=== PATIENT | male | born 1970 | race Two or more races ===

== ENCOUNTER 2023-03-29 19:37 | Inpatient (IN) | payer MEDICARE, OTHER ==
[~2023-03-29] VITALS: Ht 167.6 cm; Wt 61.2 kg
[2023-03-30] MEDS ORDERED: MAGNESIUM HYDROXIDE 30 ML UDC PO PRN (00:30)
[2023-03-30] MEDS ORDERED: BLOOD SUGAR DIAGNOSTIC 1 EACH STRIP IN ONE (00:30)
[2023-03-30] MEDS ORDERED: ZOLPIDEM TARTRATE 5 MG TABLET PO PRN (00:30)
[2023-03-30] MEDS ORDERED: ACETAMINOPHEN 325 MG TABLET PO PRN (00:30)
[2023-03-30] MEDS ORDERED: MAG HYDROX/AL HYDROX/SIMETH 30 ML UDC PO PRN (00:30)
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
--- NOTE | 2023-03-30 05:02 | NUR ---
RN note: Will endorse to next shift to notify creative services designer .
[2023-03-30 08:00] VITALS: BP 123/77
[2023-03-30] MEDS ORDERED: OLAN5TAB3 PO (08:13)
[2023-03-30 09:00] LABS: ALBUMIN 3.1 g/dL (3.4-5.0); BILIRUBIN,TOTAL 0.5 mg/dL (0.2-1.0); CREATININE 0.7 mg/dL (0.6-1.3); POTASSIUM 3.5 mmol/L (3.5-5.1); TOTAL PROTEIN, SERUM 6.5 g/dL (6.4-8.2)
--- NOTE | 2023-03-30 09:36 | NUR ---
JAYESH Initial Discharge Note: Pt is currently homeless. Pt will need placement. Pt does not have any supportive contact at this time. JAYESH will work with the MD, family, and treatment team to help coordinate appropriate discharge.
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
--- NOTE | 2023-03-30 09:37 | NUR ---
Treatment Plan: Pt was unable to comprehend. Pt refused to sign.
[2023-03-30] MEDS: clonazePAM 0.5 MG TABLET PO PRN (14:00)
--- NOTE | 2023-03-30 14:00 | NUR ---
RN- NOTES KLONOPIN ADMINISTERED DUE TO PATIENT INCREASED ANXIETY, AGITATION, AND GOING INTO OTHER PATIENTS ROOMS/BEDS.
--- NOTE | 2023-03-30 14:52 | NUR ---
RN- NOTES PATIENT AGGRESSIVE, YELLING PROFANITIES, THROWING HIMSELF ONTO THE FLOOR AND ATTEMPTING TO HIT HEAD ON FLOOR. PATIENT IS NON REDIRECTABLE.
[2023-03-30 16:00] VITALS: BP 109/55
[2023-03-30] MEDS: OLANZAPINE 5 MG TABLET PO SCH (16:30)
--- NOTE | 2023-03-30 18:37 | NUR ---
RN- CLOSING NOTES PATIENT AWAKE, RESTING IN BED, BREATHING EVEN AND NON LABORED WITH NO S/S OF DISTRESS. PATIENT IS COOPERATIVE/UNCOOPERATIVE AT TIMES, CONFUSED, DISORIENTED, GUARDED, ANXIOUS, WALKING INTO OTHER PATIENT ROOMS AND ATTEMPTING TO LAY DOWN IN OTHER PATIENTS BEDS. PATIENT REQUIRES FREQUENT REDIRECTION. PATIENT IS MEDICATION COMPLIANT. DENIES SI/HI BUT IS CONFUSED AT THIS TIME. WILL CONTINUE TO MONITOR Q 15 MINUTES FOR SAFETY AND BEHAVIOR.
[2023-03-30 20:23] VITALS: BP 124/77
[2023-03-30] MEDS: DIVALPROEX SODIUM 250 MG TABLET.DR PO SCH (22:12)
[2023-03-31 08:00] VITALS: BP 104/58
[2023-03-31 08:23] LABS: CHOLESTEROL 130 mg/dL (<200); HDL CHOLESTEROL 57 mg/dL (40-60); LDL 66 mg/dL (0-99); TRIGLYCERIDES 58 mg/dL (30-150)
[2023-03-31] MEDS: DIVALPROEX SODIUM 250 MG TABLET.DR PO SCH ×2 (08:55→20:20)
[2023-03-31] MEDS: OLANZAPINE 5 MG TABLET PO SCH ×2 (08:55→17:09)
--- NOTE | 2023-03-31 08:55 | NUR ---
RN-NOTES PATIENT SPIT ALL 0900 AM MEDICATIONS ( DEPAKOTE 250MG AND ZYPREXA 5MG P.O) STATED" I DON'T TAKE MEDICATION ) OFFERED X3
--- NOTE | 2023-03-31 09:35 | NUR ---
RN-NOTES NOTED PATIENT PACING IN THE HALLWAY,AGITATED AND INTRUSIVE. DR. PAREDES IN THE UNIT AND ORDERED ZYPREXA 10MG IM ONCE.
[2023-03-31] MEDS ORDERED: OLANZAPINE 10 MG VIAL IM ONE (10:00)
[2023-03-31] MEDS: clonazePAM 0.5 MG TABLET PO PRN (12:58)
--- NOTE | 2023-03-31 13:04 | NUR ---
RN-NOTES NOTED PATIENT PACING IN AND OUT THE ROOM TO DINING ROOM ,DISROBING AND THROWING FOOD ON THE FLOOR,REDIRECTED AND KLONOPIN 0.5MG P.O GIVEN PRN ORDER. WILL CONT. MONITORING FOR SAFETY AND BEHAVIOR.
--- NOTE | 2023-03-31 14:00 | NUR ---
RN-NOTES PATIENT LYING IN BED INTERMITTENTLY SLEEPING, NO ACUTE DISTRESS NOTED.
[2023-03-31 18:56] VITALS: BP 102/62
--- NOTE | 2023-03-31 19:50 | NUR ---
LINK TRAINER MAINTENANCE WORKER NOTES: RECEIVED PATIENT IN HIS ROOM. LAYING IN BED. APPEARS SLEEPING, EASY TO AROUSE. A/O X1-2. ON ROOM AIR. NO ACUTE DISTRESS NOTED. NO C/O PAIN AT THIS TIME. SAFETY MEASURES IN PLACE. WILL CONTINUE TO MONITOR FOR SAFETY AND BEHAVIOR.
[2023-03-31 20:00] VITALS: BP 110/67
--- NOTE | 2023-04-01 01:22 | NUR ---
GPS PIPELINE EXECUTIVE NOTE PT NOTED SLEEPING IN HIS BED, EASY TO AROUSE. BREATHING EVEN AND UNLABORED, NO S/SX OF ACUTE DISTRESS. WILL CONT TO MONITOR BEHAVIOR AND SAFETY.
--- NOTE | 2023-04-01 06:05 | NUR ---
GPS HAZARDOUS MATERIAL TECHNICIAN CLOSING NOTES PATIENT AWAKE, RESTING IN BED, BREATHING EVEN AND NON LABORED WITH NO S/S OF DISTRESS. PATIENT IS COOPERATIVE/UNCOOPERATIVE AT TIMES, CONFUSED, DISORIENTED, GUARDED, ANXIOUS. PATIENT REQUIRES FREQUENT REDIRECTION. PATIENT IS MEDICATION COMPLIANT. DENIES SI/HI BUT IS CONFUSED AT THIS TIME. WILL CONTINUE TO MONITOR Q 15 MINUTES FOR SAFETY AND BEHAVIOR. WILL ENDORSE CONTINUITY OF CARE TO INCOMING NURSE.
[2023-04-01 08:00] VITALS: BP 135/93
[2023-04-01] MEDS: DIVALPROEX SODIUM 250 MG TABLET.DR PO SCH ×2 (08:24→22:04)
[2023-04-01] MEDS: OLANZAPINE 5 MG TABLET PO SCH ×2 (08:24→16:16)
[2023-04-01 16:00] VITALS: BP 140/76
--- NOTE | 2023-04-01 18:18 | NUR ---
RN-NOTES PATIENT STAY IN THE ROOM MOST OF THE TIME ,GUARDED A/O X1 .COMPLIANT WITH MEDICATIONS. NOTED PATIENT WITH EPISODE OF DISROBING MUMBLING TO SELF BEHAVIOR.,NEEDS REDIRECTION ANS INSTRUCTIONS. ALL NEEDS ATTENDED AND ANTICIPATED. WILL CONT. MONITORING FOR SAFETY AND BEHAVIOR. WILL ENDORSE TO INCOMING SHIFT /NURSE FOR THE CONTINUITY OF CARE.
--- NOTE | 2023-04-01 20:15 | NUR ---
SPECIAL EDUCATION RESOURCE TEACHER NOTES: RECEIVED PATIENT IN HIS ROOM LYING ON BED, APPEARS SLEEPING BUT EASY TO AROUSE, NO ACUTE DISTRESS NOTED, SAFETY MEASURES MAINTAINS, WILL CONTINUE TO MONITOR FOR SAFETY AND BEHAVIOR.
--- NOTE | 2023-04-02 06:45 | NUR ---
Patient remains asleep, appears calm and comfortable. No labored breathing noted at this time. Safety measures in place. Will endorse to oncoming shift.
[2023-04-02 08:00] VITALS: BP 124/78
[2023-04-02] MEDS: DIVALPROEX SODIUM 250 MG TABLET.DR PO SCH ×2 (08:32→21:21)
[2023-04-02] MEDS: OLANZAPINE 5 MG TABLET PO SCH ×2 (08:32→16:30)
[2023-04-02 16:00] VITALS: BP 126/79
--- NOTE | 2023-04-02 19:53 | NUR ---
FLOWER PICKER NOTES: RECEIVED PATIENT IN HIS ROOM LYING ON BED, APPEARS SLEEPING BUT EASY TO AROUSE, NO ACUTE DISTRESS NOTED,BREATHING NON-LABORED WITH EQUAL RISE AND FALL OF THE CHEST.NO C/O PAIN OR DISCOMFORT AT THIS TIME.SAFETY MEASURES MAINTAINS, WILL CONTINUE TO MONITOR FOR SAFETY AND BEHAVIOR.
[2023-04-02 20:00] VITALS: BP 138/71
[2023-04-03 08:00] VITALS: BP 107/63
[2023-04-03] MEDS: OLANZAPINE 5 MG TABLET PO SCH ×2 (08:23→16:34)
[2023-04-03] MEDS: DIVALPROEX SODIUM 250 MG TABLET.DR PO SCH ×2 (08:23→20:58)
[2023-04-03] MEDS ORDERED: OLANZAPINE 2.5 MG TABLET PO SCH (14:30)
[2023-04-03 15:07] LABS: BASOPHILS % (AUTO) 0.8 % (0.0-2.0); EOSINOPHILS % (AUTO) 3.2 % (0.0-6.0); HEMATOCRIT 37 % (39-51); LYMPHOCYTES # (AUTO) 1.5 K/uL (0.8-4.8); MEAN CORPUSCULAR HGB CONC 32 g/dl (31.0-36.0); MEAN CORPUSCULAR VOLUME 89 fL (80-96); MONOCYTES # (AUTO) 0.5 K/uL (0.1-1.30); MONOCYTES % (AUTO) 9.3 % (2.0-12.0); NEUTROPHILS # (AUTO) 3.2 K/uL (1.8-8.9); NEUTROPHILS % (AUTO) 58.7 % (43.0-81.0); PLATELET COUNT (AUTO) 277 K/uL (150-450); RED BLOOD CELL COUNT(AUTO) 4.15 MIL/uL (4.5-6.0); WHITE BLOOD COUNT (AUTO) 5.4 K/uL (4.3-11.0)
[2023-04-03 16:00] VITALS: BP 100/60
--- NOTE | 2023-04-03 16:11 | NUR ---
RN-CO: CLARIFIED W/ CHEYENNE BEAM SAW OPERATOR , HE REPLIED ZYPREXA 2.5 MG QD IS IN ADDITION. NOTIFIED PHARMACY.
[2023-04-03] MEDS: OLANZAPINE 2.5 MG TABLET PO SCH (16:35)
[2023-04-03 20:41] VITALS: BP 115/65
[2023-04-04 08:00] VITALS: BP 104/64
[2023-04-04] MEDS: DIVALPROEX SODIUM 250 MG TABLET.DR PO SCH ×2 (08:12→21:09)
[2023-04-04] MEDS: OLANZAPINE 2.5 MG TABLET PO SCH ×2 (08:13→16:25)
[2023-04-04] MEDS: OLANZAPINE 5 MG TABLET PO SCH ×2 (08:13→16:24)
--- NOTE | 2023-04-04 09:11 | NUR ---
RN-CO: PATIENT IS AWAKE, ATE HIS MEAL AND TOOK ALL HIS MORNNG MEDICATIONS. HE DENIED PAIN AND DISCOMFORTS.HE IS SOMEWHAT BETTER COMPARE TO LAST WEEK, HE IS MORE COOPERATIVE AND REDIRECTABLE. WE WILL ENCOURAGE HIM TO ATTEND GROUP AND SHOWER TODAY. WE WILL CONTINUE TO MONITOR FOR SAFETY.
[2023-04-04 16:00] VITALS: BP 109/63
[2023-04-04 20:00] VITALS: BP 99/62
[2023-04-04 21:16] VITALS: BP 99/62
[2023-04-05 08:00] VITALS: BP 117/72
[2023-04-05] MEDS: OLANZAPINE 2.5 MG TABLET PO SCH ×2 (08:35→17:05)
[2023-04-05] MEDS: OLANZAPINE 5 MG TABLET PO SCH ×2 (08:35→17:05)
[2023-04-05] MEDS: DIVALPROEX SODIUM 250 MG TABLET.DR PO SCH ×2 (08:35→21:26)
--- NOTE | 2023-04-05 11:35 | NUR ---
Referral: JAYESH sent clinicals to [facility] to zachary Medrano ([phone]) for placement. JAYESH sent H & P, progress notes, and medication list.
--- NOTE | 2023-04-05 11:37 | NUR ---
SNF Contact: SW spoke with [facility] to zachary Medrano ([phone]) who stated that pt is accepted.
[2023-04-05 16:00] VITALS: BP 101/52
--- NOTE | 2023-04-05 18:50 | NUR ---
RN- CLOSING NOTES PATIENT ASLEEP IN BED, BREATHING EVEN AND NON LABORED WITH NO S/S OF DISTRESS. PATIENT IS COOPERATIVE, CONFUSED, DISORIENTED, GUARDED, ANXIOUS, AND ISOLATIVE. ENCOURAGED PATIENT TO LEAVE ROOM AND SOCIALIZE WITH STAFF, PATIENT REFUSED. PATIENT REQUIRES FREQUENT REDIRECTION. PATIENT IS MEDICATION COMPLIANT. DENIES SI/HI BUT IS CONFUSED AT THIS TIME. WILL CONTINUE TO MONITOR Q 15 MINUTES FOR SAFETY AND BEHAVIOR.
[2023-04-05 20:35] VITALS: BP 100/61
[2023-04-06 08:00] VITALS: BP 106/67
[2023-04-06] MEDS: OLANZAPINE 2.5 MG TABLET PO SCH ×2 (08:32→17:31)
[2023-04-06] MEDS: DIVALPROEX SODIUM 250 MG TABLET.DR PO SCH ×2 (08:32→21:06)
[2023-04-06] MEDS: OLANZAPINE 5 MG TABLET PO SCH ×2 (08:32→17:32)
--- NOTE | 2023-04-06 09:58 | NUR ---
RN-CO: PT IS CALM AND COOPERATIVE, HE IS BETTER THAN LAST WEEK. DENIED AH AND TAYLOR.
--- NOTE | 2023-04-06 11:24 | NUR ---
Court Notification: SW does not have any supportive contact.
--- NOTE | 2023-04-06 11:25 | NUR ---
Court Hearing: Patient's court hearing for 5290 was today and it was upheld for GD.
[2023-04-06 16:00] VITALS: BP 102/65
[2023-04-06 20:15] VITALS: BP 111/63
[2023-04-07 08:00] VITALS: BP 110/68
[2023-04-07] MEDS: OLANZAPINE 5 MG TABLET PO SCH ×2 (08:09→16:45)
[2023-04-07] MEDS: DIVALPROEX SODIUM 250 MG TABLET.DR PO SCH ×2 (08:10→21:42)
[2023-04-07] MEDS: OLANZAPINE 2.5 MG TABLET PO SCH ×2 (08:10→16:45)
--- NOTE | 2023-04-07 09:45 | NUR ---
RN Notes: Received pt. asleep in bed, breathing is even and unlabored. Ate 100% for breakfast and compliant on meds. Pt. isolates in his room and no social interactions. Encouraged to verbalize feeling s and motivated to attend group activity and encouraged to take shower. Needs attended and will continue to monitor for safety.
[2023-04-07 16:00] VITALS: BP 104/60
--- NOTE | 2023-04-07 20:24 | NUR ---
RN NOTE:- RECEIVED PATIENT IN HIS ROOM LYING ON BED, APPEARS SLEEPING BUT EASY TO AROUSE, NO ACUTE DISTRESS NOTED,BREATHING NON-LABORED WITH EQUAL RISE AND FALL OF THE CHEST.NO C/O PAIN OR DISCOMFORT AT THIS TIME.SAFETY MEASURES MAINTAINS, WILL CONTINUE TO MONITOR FOR SAFETY AND BEHAVIOR.
--- NOTE | 2023-04-08 06:40 | NUR ---
RN CLOSING NOTES:- PATIENT ASLEEP IN BED, BREATHING EVEN AND NON LABORED WITH NO S/S OF DISTRESS. PATIENT IS COOPERATIVE, CONFUSED, DISORIENTED, GUARDED, ANXIOUS, AND ISOLATIVE. ENCOURAGED PATIENT TO LEAVE ROOM AND SOCIALIZE WITH STAFF, PATIENT REFUSED. PATIENT REQUIRES FREQUENT REDIRECTION. PATIENT IS MEDICATION COMPLIANT. DENIES SI/HI BUT IS CONFUSED AT THIS TIME. WILL CONTINUE TO MONITOR Q 15 MINUTES FOR SAFETY AND BEHAVIOR.
[2023-04-08 08:00] VITALS: BP 100/53
[2023-04-08] MEDS: OLANZAPINE 5 MG TABLET PO SCH ×2 (08:06→16:15)
[2023-04-08] MEDS: OLANZAPINE 2.5 MG TABLET PO SCH ×2 (08:06→16:15)
[2023-04-08] MEDS: DIVALPROEX SODIUM 250 MG TABLET.DR PO SCH ×2 (08:06→21:27)
[2023-04-08 16:02] VITALS: BP 108/61
--- NOTE | 2023-04-08 19:27 | NUR ---
GPS RN NOTE, RECEIVED PATIENT AWAKE AND IN BED, NO S/S OR COMPLAINTS OF PAIN AT THIS TIME. PATIENT IS DISPLAYING NO S/S OF APPARENT DISTRESS AT THIS TIME. PATIENT BREATHING IS UNLABORED WITH EQUAL RISE AND FALL OF THE CHEST. PATIENT IS ALERT AND ORIENTED X 1 ON ROOM AIR WITH A SPO2 97%. PATIENT IS COMPLAINT WITH MEDICATIONS, ISOLATIVE, CONFUSED AT TIMES, MAKES NEEDS KNOWN, AND COOPERATIVE. PATIENT DENIES SUICIDAL AND HOMICIDAL IDEATIONS AT THIS TIME. PATIENT ASSISTED WITH TURNING AND REPOSITIONING Q2HR AND PRN FOR COMFORT AND CIRCULATION. PATIENT HAS NO NEEDS AT THIS TIME. PATIENT EDUCATED ON THE USE OF THE CALL CHANG. PATIENT BED SIDE RAILS UP X 2 FOR SAFETY. PATIENT BED IS LOCKED, LOW, WITH BED ALARM ON. WILL CONTINUE TO MONITOR THIS PATIENT Q15 MINUTES WITH THE HELP OF STAFF TO MAINTAIN SAFETY.
[2023-04-09 08:00] VITALS: BP 101/69
[2023-04-09] MEDS: OLANZAPINE 5 MG TABLET PO SCH ×2 (08:10→16:06)
[2023-04-09] MEDS: DIVALPROEX SODIUM 250 MG TABLET.DR PO SCH ×2 (08:10→21:20)
[2023-04-09] MEDS: OLANZAPINE 2.5 MG TABLET PO SCH (08:10)
[2023-04-09 16:00] VITALS: BP 100/58
--- NOTE | 2023-04-09 19:30 | NUR ---
GPS RN NOTE, RECEIVED PATIENT AWAKE AND IN BED, NO S/S OR COMPLAINTS OF PAIN AT THIS TIME. PATIENT IS DISPLAYING NO S/S OF APPARENT DISTRESS AT THIS TIME. PATIENT BREATHING IS UNLABORED WITH EQUAL RISE AND FALL OF THE CHEST. PATIENT IS ALERT AND ORIENTED X 1-2 ON ROOM AIR WITH A SPO2 97%. PATIENT IS COMPLAINT WITH MEDICATIONS, ISOLATIVE, CONFUSED AT TIMES, MAKES NEEDS KNOWN, AND COOPERATIVE. PATIENT DENIES SUICIDAL AND HOMICIDAL IDEATIONS AT THIS TIME. PATIENT ASSISTED WITH TURNING AND REPOSITIONING Q2HR AND PRN FOR COMFORT AND CIRCULATION. PATIENT HAS NO NEEDS AT THIS TIME. PATIENT EDUCATED ON THE USE OF THE CALL CHANG. PATIENT BED SIDE RAILS UP X 2 FOR SAFETY. PATIENT BED IS LOCKED, LOW, WITH BED ALARM ON. WILL CONTINUE TO MONITOR THIS PATIENT Q15 MINUTES WITH THE HELP OF STAFF TO MAINTAIN SAFETY.
[2023-04-09 20:49] VITALS: BP 155/57
[2023-04-10 08:00] VITALS: BP 107/55
[2023-04-10] MEDS: OLANZAPINE 5 MG TABLET PO SCH ×2 (08:08→17:41)
[2023-04-10] MEDS: DIVALPROEX SODIUM 250 MG TABLET.DR PO SCH ×2 (08:09→21:08)
[2023-04-10 16:00] VITALS: BP 110/58
[2023-04-10 20:14] VITALS: BP 112/70
[2023-04-11 08:00] VITALS: BP 112/65
[2023-04-11] MEDS: OLANZAPINE 5 MG TABLET PO SCH ×2 (08:52→17:27)
[2023-04-11] MEDS: DIVALPROEX SODIUM 250 MG TABLET.DR PO SCH ×2 (08:52→20:25)
[2023-04-11 16:00] VITALS: BP 103/65
[2023-04-11 20:00] VITALS: BP 107/69
[2023-04-12 08:00] VITALS: BP 100/59
--- NOTE | 2023-04-12 09:17 | NUR ---
SW Discharge Note: Patient will be discharged to long-term facility, [facility], located at [address] [place] [address] ([phone]). Please arrange ambulance transportation at 1PM. company laundry worker spoke with Marcela sharma ([phone]), who stated patient will be accepted at the facility today. Patient does not have any supportive contact. Patient is alert and oriented x3 and is unable to plan for self-care. Patient denies any suicidal or homicidal ideation. Patient has no supportive contact. Patient will follow-up at the facility with Dr. Mota (psychiatrist) [id number] [address]; ([phone]) and (Mica Paster) Dr. Hogue [address], [place] [address]; ([phone]). Patient refused to sign the homeless waiver upon discharge and a copy was placed in the chart. Homeless resources were provided and include [address] information line for shelters and homeless resources. A copy of all resources given to patient was also placed in the chart. Patient presents with euthymic mood and congruent affect.
[2023-04-12] MEDS: DIVALPROEX SODIUM 250 MG TABLET.DR PO SCH (09:19)
[2023-04-12] MEDS: OLANZAPINE 5 MG TABLET PO SCH (09:19)
--- NOTE | 2023-04-12 14:40 | NUR ---
RN- DISCHARGE NOTES PATIENT DISCHARGED TO [facility] IN STABLE CONDITION. COMPLIANT WITH MEDICATIONS AND COOPERATIVE WITH TREATMENT PLANS. PATIENT DENIES SUICIDAL/HOMICIDAL IDEATION AND AUDITORY/VISUAL HALLUCINATION. BEHAVIOR IMPROVED, PSYCHIATRIC TREATMENT PLANS MET, MEDICAL TREATMENT PLANS DEFERRED FOR CONTINUAL MONITORING. EDUCATED PATIENT ABOUT AFTER CARE PLAN AND COPY PROVIDED. RETURNED ALL PERSONAL BELONGINGS TO PATIENT. PATIENT IS WITHOUT DISTRESS, CALM, AND COOPERATIVE. MEDICATIONS RECONCILED WITH PSYCHIATRIST DR. PAREDES AND CLOTH EDGE SINGER DR. LUONG. PSYCHIATRIST ORDER TO DISCONTINUE HOLD AND DISCHARGE TO [facility], AND ORDER TO CONTINUE WITH ALL MEDICATIONS AND PRN'S COMPLETED. REPORT GIVEN TO AMRIT HOLLINGSWORTH AT [facility] FOR CONTINUITY OF CARE. PATIENT SIGNED ALL DISCHARGE PAPERWORK EXCEPT FOR THE HOMELESS ACKNOWLEDGEMENT PAPERWORK, COPY PROVIDED AND PLACED IN CHART. SKIN INTACT, NO PHOTO REQUIRED. PATIENT LEFT THE UNIT AT 1440 VIA AMBULANCE ON A GURNEY.
== END 2023-04-12 14:40 | DRG 885 ==
LOC: GPS 23:43
PROVIDERS: ADMIT Psychiatry & Neurology Psychiatry; ATTEND Internal Medicine
DX: F29 Unspecified psychosis not due to a substance or known physiological condition (principal); F20.0 Paranoid schizophrenia; Z59.02 Unsheltered homelessness; M62.81 Muscle weakness (generalized); R41.89 Other symptoms and signs involving cognitive functions and awareness; F32.A Depression, unspecified; F41.9 Anxiety disorder, unspecified; Z91.81 History of falling; R27.9 Unspecified lack of coordination
CPT/HCPCS: 36415; 80053-TC; 80061-TC; 80164-TC; 85025-TC; J3490

== ENCOUNTER 2023-08-11 00:38 | Inpatient (IN) | payer MEDICARE, OTHER ==
[~2023-08-11] VITALS: Ht 165.1 cm; Wt 73.5 kg
[~2023-08-11 00:38] MED LIST: ACET-868 PO; CLON0.5T4 PO; DIVA500T2 PO; MAG30ORA PO; MAGN400O6 PO; OLAN5TAB3 PO; ZOLP5TAB8 PO
[2023-08-11 01:13] LABS: APPEARANCE,URINE CLEAR (CLEAR); BILIRUBIN,URINE NEGATIVE (NEGATIVE); BLOOD, URINE NEGATIVE Ery/uL (NEGATIVE); COLOR,URINE YELLOW (YELLOW); KETONES,URINE NEGATIVE (NEGATIVE); LEUKOCYTE ESTERASE ,URINE NEGATIVE (NEGATIVE); NITRITE, URINE NEGATIVE (NEGATIVE); PROTEIN,URINE NEGATIVE (NEGATIVE); UGLUCOSE NEGATIVE (NEGATIVE); UROBILINOGEN,URINE 0.2 EU/dL (0.2)
[2023-08-11 01:16] LABS: BASOPHILS % (AUTO) 0.5 % (0.0-2.0); EOSINOPHILS # (AUTO) 0.1 K/uL (0.0-0.7); EOSINOPHILS % (AUTO) 1.3 % (0.0-6.0); HEMATOCRIT 34 % (39-51); HEMOGLOBIN 11.7 g/dL (13.5-17.5); LYMPHOCYTES # (AUTO) 1.5 K/uL (0.8-4.8); LYMPHOCYTES % (AUTO) 19.1 % (20.0-44.0); MEAN CORPUSCULAR HEMOGLOBIN 31 PG (26.0-33.0); MEAN CORPUSCULAR HGB CONC 34 g/dl (31.0-36.0); MEAN CORPUSCULAR VOLUME 89 fL (80-96); NEUTROPHILS # (AUTO) 5.1 K/uL (1.8-8.9); NEUTROPHILS % (AUTO) 66.1 % (43.0-81.0); PLATELET COUNT (AUTO) 260 K/uL (150-450); RED BLOOD CELL COUNT(AUTO) 3.82 MIL/uL (4.5-6.0); RED CELL DISTRIBUTION WIDTH 14.6 % (11.5-15.0); WHITE BLOOD COUNT (AUTO) 7.7 K/uL (4.3-11.0)
[2023-08-11 01:22] LABS: AMPHETAMINE, URINE NEGATIVE (NEGATIVE); BARBITURATE, URINE NEGATIVE (NEGATIVE); BENZODIAZEPINE, URINE NEGATIVE (NEGATIVE); CANNABINOID, URINE NEGATIVE (NEGATIVE); COCCAINE, URINE NEGATIVE (NEGATIVE); OPIATE, URINE NEGATIVE (NEGATIVE); PHENCYCLIDINE SCREEN,URINE NEGATIVE (NEGATIVE)
[2023-08-11 01:24] LABS: CALCIUM, SERUM 9.2 mg/dL (8.5-10.1); CARBON DIOXIDE 26 mmol/L (21-32); CHLORIDE 103 mmol/L (98-107); CREATININE 1.2 mg/dL (0.6-1.3); GLUCOSE 112 mg/dL (74-106); POTASSIUM 3.9 mmol/L (3.5-5.1); SODIUM SERUM 137 mmol/L (136-145); UREA NITROGEN, BLOOD 12 mg/dL (7-18)
[2023-08-11 01:30] LABS: ALANINE AMINOTRANSFERASE 26 U/L (12-78); ALBUMIN 3.4 g/dL (3.4-5.0); ALKALINE PHOSPHATASE 126 U/L (46-116); ASPARTATE AMINOTRANSFERASE 22 U/L (15-37); BILIRUBIN,DIRECT 0.1 mg/dL (0.0-0.2); BILIRUBIN,TOTAL 0.2 mg/dL (0.2-1.0); SALICYLATE 2.9 mg/dL (2.8-20.0); TOTAL PROTEIN, SERUM 7.2 g/dL (6.4-8.2)
[2023-08-11 01:31] LABS: ACETAMINOPHEN <10 ug/ml (10-30); ALCOHOL, BLOOD < 3 mg/dL (0-10)
[2023-08-11] MEDS ORDERED: LORA-259 PO (02:54)
[2023-08-11 05:45] VITALS: BP 107/71; TEMP 98.2; O2SAT 98
[2023-08-11] MEDS ORDERED: MAGNESIUM HYDROXIDE 30 ML UDC PO PRN ×2 (06:00→11:30)
[2023-08-11] MEDS ORDERED: LORAZEPAM 1 MG TABLET PO PRN (06:00)
[2023-08-11] MEDS ORDERED: ACETAMINOPHEN 325 MG TABLET PO PRN ×2 (06:00→11:30)
[2023-08-11] MEDS ORDERED: BLOOD SUGAR DIAGNOSTIC 1 EACH STRIP IN ONE (06:00)
[2023-08-11] MEDS ORDERED: MAG HYDROX/AL HYDROX/SIMETH 30 ML UDC PO PRN (06:00)
[2023-08-11] MEDS ORDERED: ZOLPIDEM TARTRATE 5 MG TABLET PO PRN ×2 (06:00→11:30)
[2023-08-11 08:00] VITALS: BP 107/72; TEMP 97.9; O2SAT 96
[2023-08-11] MEDS: OLANZAPINE 5 MG TABLET PO SCH ×2 (09:53→16:58)
[2023-08-11] MEDS: DIVALPROEX SODIUM 250 MG TABLET.DR PO SCH ×3 (09:53→16:58)
[2023-08-11 16:00] VITALS: BP 106/65; TEMP 98.6; O2SAT 100
[2023-08-11 20:00] VITALS: BP 125/81; TEMP 98.2; O2SAT 96
[2023-08-12 07:14] LABS: ALBUMIN 3.3 g/dL (3.4-5.0); BILIRUBIN,TOTAL 0.3 mg/dL (0.2-1.0); CALCIUM, SERUM 9.2 mg/dL (8.5-10.1); CREATININE 0.8 mg/dL (0.6-1.3); POTASSIUM 3.8 mmol/L (3.5-5.1); TOTAL PROTEIN, SERUM 7.3 g/dL (6.4-8.2)
[2023-08-12 07:17] LABS: THYROID STIMULATING HORMONE 2.862 uIU/mL (0.358-3.74)
[2023-08-12 08:00] VITALS: BP 110/79; TEMP 97.7; O2SAT 97
[2023-08-12] MEDS: OLANZAPINE 5 MG TABLET PO SCH ×2 (08:29→16:42)
[2023-08-12] MEDS: DIVALPROEX SODIUM 250 MG TABLET.DR PO SCH ×3 (08:29→16:42)
[2023-08-12] MEDS: NICOTINE PATCH (21MG) 21 MG PATCH.TD24 TD SCH (08:29)
[2023-08-12 16:00] VITALS: BP 115/82; TEMP 98; O2SAT 97
[2023-08-12 20:00] VITALS: BP 118/71; TEMP 97.5; O2SAT 96
[2023-08-13 08:00] VITALS: BP 105/71; TEMP 97.7; O2SAT 95
[2023-08-13] MEDS: DIVALPROEX SODIUM 250 MG TABLET.DR PO SCH ×3 (08:14→17:59)
[2023-08-13] MEDS: OLANZAPINE 5 MG TABLET PO SCH ×2 (08:15→18:00)
[2023-08-13] MEDS: NICOTINE PATCH (21MG) 21 MG PATCH.TD24 TD SCH (08:15)
[2023-08-13 16:00] VITALS: BP 109/66; TEMP 97.6; O2SAT 94
[2023-08-13 20:07] VITALS: BP 128/93; TEMP 97.6; O2SAT 96
[2023-08-14 08:00] VITALS: BP 106/72; TEMP 98.4; O2SAT 97
[2023-08-14] MEDS: DIVALPROEX SODIUM 250 MG TABLET.DR PO SCH ×3 (08:36→17:59)
[2023-08-14] MEDS: OLANZAPINE 5 MG TABLET PO SCH ×2 (08:36→17:59)
[2023-08-14] MEDS: NICOTINE PATCH (21MG) 21 MG PATCH.TD24 TD SCH (08:36)
[2023-08-14 16:00] VITALS: BP 108/79; TEMP 98.2; O2SAT 97
[2023-08-14 21:02] VITALS: BP 113/83; TEMP 97.9; O2SAT 97
[2023-08-15 08:00] VITALS: BP 100/63; TEMP 97.5; O2SAT 98
[2023-08-15] MEDS: DIVALPROEX SODIUM 250 MG TABLET.DR PO SCH ×3 (08:29→16:35)
[2023-08-15] MEDS: OLANZAPINE 5 MG TABLET PO SCH ×2 (08:29→16:35)
[2023-08-15] MEDS: NICOTINE PATCH (21MG) 21 MG PATCH.TD24 TD SCH (08:29)
[2023-08-15 16:00] VITALS: BP 110/63; TEMP 98.2; O2SAT 95
[2023-08-15 19:48] VITALS: BP 117/76; TEMP 98.1; O2SAT 96
[2023-08-16 08:00] VITALS: BP 105/62; TEMP 98.1; O2SAT 100
[2023-08-16] MEDS: NICOTINE PATCH (21MG) 21 MG PATCH.TD24 TD SCH (08:41)
[2023-08-16] MEDS: OLANZAPINE 5 MG TABLET PO SCH ×2 (08:41→16:17)
[2023-08-16] MEDS: DIVALPROEX SODIUM 250 MG TABLET.DR PO SCH ×2 (08:41→16:16)
[2023-08-16 15:57] VITALS: BP 123/85; TEMP 97.9; O2SAT 100
[2023-08-16 16:00] VITALS: BP 123/85; TEMP 97.9; O2SAT 97
[2023-08-16 20:52] VITALS: BP 120/78; TEMP 98.1; O2SAT 95
[2023-08-17 08:00] VITALS: BP 103/62; TEMP 98.7; O2SAT 100
[2023-08-17] MEDS: DIVALPROEX SODIUM 250 MG TABLET.DR PO SCH ×2 (08:20→16:21)
[2023-08-17] MEDS: NICOTINE PATCH (21MG) 21 MG PATCH.TD24 TD SCH (08:20)
[2023-08-17] MEDS: OLANZAPINE 5 MG TABLET PO SCH ×2 (08:20→16:21)
[2023-08-17 16:00] VITALS: BP 98/70; TEMP 97.9; O2SAT 96
[2023-08-17 20:13] VITALS: BP 107/84; TEMP 98.2; O2SAT 96
[2023-08-18 08:00] VITALS: BP 105/62; TEMP 98; O2SAT 97
[2023-08-18] MEDS: OLANZAPINE 5 MG TABLET PO SCH ×2 (08:29→16:33)
[2023-08-18] MEDS: NICOTINE PATCH (21MG) 21 MG PATCH.TD24 TD SCH (08:29)
[2023-08-18] MEDS: DIVALPROEX SODIUM 250 MG TABLET.DR PO SCH ×2 (08:29→16:33)
[2023-08-18 16:00] VITALS: BP 121/78; TEMP 98; O2SAT 98
[2023-08-18 20:00] VITALS: BP 122/82; TEMP 98.6; O2SAT 99
[2023-08-19 08:00] VITALS: BP 109/70; TEMP 98; O2SAT 98
[2023-08-19] MEDS: OLANZAPINE 5 MG TABLET PO SCH ×2 (08:29→16:27)
[2023-08-19] MEDS: DIVALPROEX SODIUM 250 MG TABLET.DR PO SCH ×2 (08:29→16:27)
[2023-08-19] MEDS: NICOTINE PATCH (21MG) 21 MG PATCH.TD24 TD SCH (08:29)
[2023-08-19 16:00] VITALS: BP 106/77; TEMP 97.6; O2SAT 96
[2023-08-19 20:00] VITALS: BP 122/72; TEMP 97.6; O2SAT 95
[2023-08-20 08:00] VITALS: BP 95/64; TEMP 97.6; O2SAT 97
[2023-08-20] MEDS: OLANZAPINE 5 MG TABLET PO SCH ×2 (08:07→16:32)
[2023-08-20] MEDS: DIVALPROEX SODIUM 250 MG TABLET.DR PO SCH ×2 (08:07→16:32)
[2023-08-20] MEDS: NICOTINE PATCH (21MG) 21 MG PATCH.TD24 TD SCH (08:07)
[2023-08-20 16:00] VITALS: BP 119/63; TEMP 97.6; O2SAT 97
[2023-08-20 20:58] VITALS: BP 130/87; TEMP 97.6; O2SAT 97
[2023-08-21 08:00] VITALS: BP 101/68; TEMP 99.3; O2SAT 96
[2023-08-21] MEDS: DIVALPROEX SODIUM 250 MG TABLET.DR PO SCH ×2 (08:25→17:41)
[2023-08-21] MEDS: OLANZAPINE 5 MG TABLET PO SCH ×2 (08:25→17:41)
[2023-08-21] MEDS: NICOTINE PATCH (21MG) 21 MG PATCH.TD24 TD SCH (08:25)
[2023-08-21 16:00] VITALS: BP 100/68; TEMP 97.7; O2SAT 96
[2023-08-21 20:21] VITALS: BP 127/86; TEMP 97.9; O2SAT 96
[2023-08-22 08:00] VITALS: BP 107/66; TEMP 98.2; O2SAT 99
[2023-08-22] MEDS: NICOTINE PATCH (21MG) 21 MG PATCH.TD24 TD SCH (08:32)
[2023-08-22] MEDS: DIVALPROEX SODIUM 250 MG TABLET.DR PO SCH ×2 (08:32→16:00)
[2023-08-22] MEDS: OLANZAPINE 5 MG TABLET PO SCH ×2 (08:32→16:00)
[2023-08-22 16:00] VITALS: BP 105/69; TEMP 98.1; O2SAT 96
[2023-08-22 20:29] VITALS: BP 124/78; TEMP 98.4; O2SAT 98
[2023-08-23 08:00] VITALS: BP 110/85; TEMP 98; O2SAT 98
[2023-08-23] MEDS: OLANZAPINE 5 MG TABLET PO SCH ×2 (08:14→16:22)
[2023-08-23] MEDS: DIVALPROEX SODIUM 250 MG TABLET.DR PO SCH ×2 (08:14→16:22)
[2023-08-23] MEDS: NICOTINE PATCH (21MG) 21 MG PATCH.TD24 TD SCH (08:14)
[2023-08-23 16:00] VITALS: BP 109/68; TEMP 97.8; O2SAT 99
[2023-08-23 20:30] VITALS: BP 104/61; TEMP 98.4; O2SAT 95
[2023-08-24 08:00] VITALS: BP 110/84; TEMP 97.9; O2SAT 99
[2023-08-24] MEDS: NICOTINE PATCH (21MG) 21 MG PATCH.TD24 TD SCH (08:19)
[2023-08-24] MEDS: OLANZAPINE 5 MG TABLET PO SCH (08:19)
[2023-08-24] MEDS: DIVALPROEX SODIUM 250 MG TABLET.DR PO SCH (08:20)
== END 2023-08-24 14:23 | DRG 885 ==
LOC: ER 00:44 → GPS 04:46
PROVIDERS: ADMIT Psychiatry & Neurology Psychiatry; ATTEND Student in an Organized Health Care Education/Training Program
DX: F25.0 Schizoaffective disorder, bipolar type (principal); G40.909 Epilepsy, unspecified, not intractable, without status epilepticus; I10 Essential (primary) hypertension; D64.9 Anemia, unspecified; F17.210 Nicotine dependence, cigarettes, uncomplicated; K21.9 Gastro-esophageal reflux disease without esophagitis; Z79.899 Other long term (current) drug therapy; Z20.822 Contact with and (suspected) exposure to COVID-19; Z73.6 Limitation of activities due to disability; M19.90 Unspecified osteoarthritis, unspecified site
CPT/HCPCS: 36415; 80048-TC; 80053-TC; 80061-TC; 80076-TC; 80164-TC; 82962-TC; 84443-TC; 85025-TC; G0480